=== PATIENT | male | born 1980 | race Caucasian/White ===

== ENCOUNTER → 2022-03-11 | Outpatient (CLI) | payer BC ==
[~2022-03-11] MED LIST: AZITHROMYCIN250 MG PO; DECADRON6 MG PO; HYDROXYCHLOROQ200 MG PO; IMODIUM CAP 2 MG2 MG PO; OMEPRAZOLE20 M1 PO; PHENERGAN 25 MG25 M1 PO; PROTONIX40 MG PO
== END ==
LOC: RAD 15:38
DX: M79.672 Pain in left foot (principal)
CPT/HCPCS: 73630